=== PATIENT | male | born 1950 ===

== ENCOUNTER 2017-06-13 09:16 | Outpatient (RCR) | payer MEDICARE, OTHER ==
[~2017-06-13] VITALS: Ht 162.6 cm; Wt 68.0 kg
[2017-06-22] MEDS ORDERED: Lidocaine 4% Top Soln 50ml TOPIC ONE (08:45)
[2017-06-22] MEDS ORDERED: Neosporin Oint 15gm TOPIC ONE (08:45)
== END 2017-06-21 | disposition home or self-care (01) ==
LOC: WCC 09:16
DX: L97.514 Non-pressure chronic ulcer of other part of right foot with necrosis of bone (principal); E11.40 Type 2 diabetes mellitus with diabetic neuropathy, unspecified; E08.51 Diabetes mellitus due to underlying condition with diabetic peripheral angiopathy without gangrene; E11.621 Type 2 diabetes mellitus with foot ulcer; Z89.431 Acquired absence of right foot; I10 Essential (primary) hypertension
CPT/HCPCS: 11043; 11044; 11047; 82962; 97606

== ENCOUNTER 2017-06-26 08:30 | Outpatient (RCR) | payer MEDICARE, OTHER ==
--- NOTE | 2017-06-28 15:30 | Hyperbaric Consultation ---
DATE: 06/26/2017 HYPERBARIC OXYGEN CONSULTATION CONSULTING PHYSICIAN: Bernard Stoddard M.D. REASON FOR EVALUATION: Hyperbaric oxygen consultation. HISTORY: This is a pleasant 66-year-old male who presents for evaluation. The patient has known history of right partial foot amputation. The patient with a failed flap and currently with a wound VAC. 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 The patient does have underlying history of diabetes. The patient also has recent history of antibiotics, presumably for osteomyelitis. The patient now presents for hyperbaric oxygen consultation and evaluation. The patient denies any history of chronic obstructive pulmonary disease and asthma. He does admit to former smoking history and was using inhaler as needed. The patient's care was discussed and reviewed in detail. The patient's was present on questioning. Chart was reviewed and care discussed with the nursing staff. PAST MEDICAL HISTORY: Notable for diabetes, hypertension, and right foot partial amputation. MEDICATIONS: Reviewed. ALLERGIES: Reviewed. SOCIAL HISTORY: The patient is a former smoker, nondrinker. The patient is with children. REVIEW OF SYSTEMS: All 10-points reviewed and otherwise negative. FAMILY HISTORY: Noncontributory to the above. PHYSICAL EXAMINATION: A well-developed male, comfortable, alert. VITAL SIGNS: 112/65, 96, 14, 97.5 HEENT: Fairly negative. Tympanic membranes are clear, but there is some wax. Oropharynx clear. LUNGS: With reduced breath sounds. Overall clear. No wheezes. No rhonchi. CARDIAC: Normal S1 and S2. Regular rate and rhythm without murmurs, rubs, or gallops. ABDOMEN: Soft, nontender, and nondistended. EXTREMITIES: No cyanosis or clubbing. There is reduced pulsation. Right foot partial amputation noted. The patient with failed flap and open wound. NEUROLOGICAL: Nonfocal. IMPRESSION: Right foot partial amputation, failed flap, diabetes, history of gangrene, and history of osteomyelitis. RECOMMENDATIONS: The patient appears to be an appropriate candidate for hyperbaric oxygen. We will proceed with 90-minute intervals at 2.5 atmospheres with indication of 30 treatments for now and reevaluation upon completion. Continue with ongoing wound care management and care discussed with the patient in detail. The patient is agreeable to proceed. Side effects were reviewed and we will monitor for any issues with anxiety and/or respiratory issues. Bernard Stoddard M.D. DR: ANKIT JOB#: [id number] CC: [email or web address]
== END 2017-07-21 | disposition home or self-care (01) ==
LOC: WCC 08:30
DX: L97.514 Non-pressure chronic ulcer of other part of right foot with necrosis of bone (principal); E11.621 Type 2 diabetes mellitus with foot ulcer; Z89.431 Acquired absence of right foot; E11.40 Type 2 diabetes mellitus with diabetic neuropathy, unspecified; E08.51 Diabetes mellitus due to underlying condition with diabetic peripheral angiopathy without gangrene; I10 Essential (primary) hypertension
CPT/HCPCS: 11044; 11047; 82962; 97605; G0277; G0463